=== PATIENT | female | born 1960 | race Caucasian/White ===

== ENCOUNTER → 2020-11-19 10:35 | Outpatient (CLI) | payer BC ==
[2020-09-03 13:06] VITALS: BMI 46.4
[~2020-11-19 10:35] MED LIST: FENOFIBRATE160 MG PO; LISINOPRIL40 MG PO; NORVASC5 MG PO; TRAZODONE HCL100 MG PO
== END | disposition home or self-care (01) ==
LOC: D.CT 10:35
PROVIDERS: ATTEND Internal Medicine Gastroenterology
DX: R11.0 Nausea (principal); R19.7 Diarrhea, unspecified; K92.1 Melena; R10.31 Right lower quadrant pain